=== PATIENT | male | born 1975 | race Caucasian/White ===

== ENCOUNTER → 2016-09-18 | Outpatient (CLI) | payer OTHER | END | disposition home or self-care (01) | LOC: LABWHC1 08:03 | PROVIDERS: ATTEND Psychiatry & Neurology Psychiatry | DX: F31.4 Bipolar disorder, current episode depressed, severe, without psychotic features (principal) | CPT/HCPCS: 36415; 80178 ==

== ENCOUNTER 2020-06-28 20:17 | Emergency (ER) | payer OTHER ==
[2020-06-28 20:22] VITALS: BP 142/80; PULSE 103; TEMP 98.9
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
[2020-06-28 23:02] VITALS: RESP 17
== END 2020-06-28 22:56 | disposition home or self-care (01) ==
LOC: EC 20:17
DX: F43.20 Adjustment disorder, unspecified (principal); I10 Essential (primary) hypertension; M19.90 Unspecified osteoarthritis, unspecified site; F31.9 Bipolar disorder, unspecified; Z79.899 Other long term (current) drug therapy; Z88.1 Allergy status to other antibiotic agents
CPT/HCPCS: 82075; 99284

== ENCOUNTER 2021-10-01 12:25 | Emergency (ER) | payer OTHER ==
[2021-10-01 12:32] VITALS: BP 159/99; PULSE 100; RESP 22; TEMP 97.7
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
--- NOTE | 2021-10-01 13:14 | CT ---
EXAMINATION TYPE: CT brain [place] con DATE OF EXAM: 10/01/2021 COMPARISON: NONE HISTORY: Fall with headache and neck pain. CT DLP: 1953.8 mGycm. Automated Exposure Control for Dose Reduction was Utilized. TECHNIQUE: CT scan of the head and cervical spine are performed without contrast. FINDINGS: There is no acute intracranial hemorrhage or midline shift identified. Mild generalized a trophy greatest in the bilateral frontal lobes. No hydrocephalus. Calvarium is intact. Small lacerati on injury with scalp hematoma right parietal occipital level. Calcification or ossification along the anterior interhemispheric fissure. Dependent fluid in the right maxillary sinus otherwise the parana gurvinder sinuses are clear. Nasal septum is deviated to right of midline. There is soft tissue density con sistent with cerumen in the deep left external auditory canal. The globes are intact bilaterally. Cervical spine is visualized in its entirety from C1 through upper thoracic levels and demonstrates s light grade 1 retrolisthesis C5 on C6 without evidence of acute fracture or dislocation. Prevertebra l soft tissue appears within normal limits. The C1-C2 articulation is within normal limits on the co mayito images. Vertebral body heights and disc space heights are maintained. There are right paracentr al spur disc complexes efface the anterior thecal sac at C4-C5 and C5-C6 images. Thyroid gland is nor mal in size. Lung apices show no pneumothorax. IMPRESSION: 1. There is no acute fracture or dislocation evident in the cervical spine. 2. No acute intracranial hemorrhage or midline shift is seen. Incidental small right acute parietal o ccipital scalp hematoma.
== END 2021-10-01 14:56 | disposition home or self-care (01) ==
LOC: EC 12:25
DX: S01.01XA Laceration without foreign body of scalp, initial encounter (principal); I10 Essential (primary) hypertension; F31.9 Bipolar disorder, unspecified; F12.90 Cannabis use, unspecified, uncomplicated; E66.01 Morbid (severe) obesity due to excess calories; Z68.41 Body mass index [BMI] 40.0-44.9, adult; Z79.899 Other long term (current) drug therapy; W01.0XXA Fall on same level from slipping, tripping and stumbling without subsequent striking against object, initial encounter
CPT/HCPCS: 12004; 70450; 72125; 99284

== ENCOUNTER → 2022-04-22 | Outpatient (CLI) | payer OTHER ==
[2022-04-22 14:43] LABS: Basophils % (A) 0.8 %; Eosinophils # (A) 0.69 X 10*3/uL (0.04-0.35); Eosinophils % (A) 5.4 %; HCT 42.8 % (39.6-50.0); HGB 13.5 g/dL (13.0-17.0); Immature Grans, Automated 0.9 %; Lymphocytes % (A) 20.2 %; MCH 29.9 pg (27.0-32.0); MCHC 31.5 g/dL (32.0-37.0); MCV 94.7 fL (80.0-97.0); Mean Platelet Volume 9.8 fL (9.5-12.2); Monocytes # (A) 0.74 X 10*3/uL (0.20-1.00); Monocytes % (A) 5.8 %; NRBC Per 100 WBC 0 /100 WBCS (0.0-0.0); Neutrophils % (A) 66.9 %; Platelet Count 295 X 10*3/uL (140-440); RBC 4.52 X 10*6/uL (4.40-5.60); RDW 13.6 % (11.5-14.5); WBC 12.85 X 10*3/uL (4.50-10.00)
[2022-04-22 14:53] LABS: ALT 17 U/L (10-49); AST 12 U/L (14-35); African American GFR (CKD) 117.5 (60.0-200.0); Albumin 3.9 g/dL (3.8-4.9); Albumin/Globulin Ratio 0.93 (1.60-3.17); Alkaline Phosphatase 89 U/L (41-126); BUN/Creat Ratio 18.44 Ratio (12.00-20.00); Blood Urea Nitrogen 16.6 mg/dL (9.0-27.0); Calcium 9.1 mg/dL (8.7-10.3); Carbon Dioxide 21.7 mmol/L (20.0-27.5); Chloride 104 mmol/L (96-109); Globulin 4.2 g/dL (1.6-3.3); Glucose 117 mg/dL (70-110); Non-African American GFR(CKD) 101.4 (60.0-200.0); Sodium 137 mmol/L (135-145); Total Protein 8.1 g/dL (6.2-8.2)
[2022-04-22 14:54] LABS: Bilirubin, Conjugated <0.20 mg/dL (0.20-0.40); Chol/HDL Ratio 3.68 Ratio; LDL Cholesterol,Calculated 94.6 mg/dL (0.0-131.0)
[2022-04-23 09:31] LABS: Estimated Average Glucose CANCELED
== END | disposition home or self-care (01) ==
LOC: LABWHC1 08:20
DX: F31.2 Bipolar disorder, current episode manic severe with psychotic features (principal); Z79.899 Other long term (current) drug therapy
CPT/HCPCS: 36415; 80053; 80061; 80178; 82248; 83036; 84439; 84443; 85025